=== PATIENT | female | born 1980 | race African-American/Black ===

== ENCOUNTER 2016-12-26 01:29 | Emergency (ER) | payer MEDICARE ==
[~2016-12-26] VITALS: Ht 170.2 cm; Wt 69.0 kg
[2016-12-26] MEDS ORDERED: KETOROLAC 30MG/ML VIAL IV ONE (05:30)
[2016-12-26] MEDS ORDERED: KETOROLAC 30MG/ML VIAL IM ONE (05:30)
[2016-12-26 05:41] VITALS: BP 128/83
== END 2016-12-26 06:17 | disposition left against medical advice (07) ==
LOC: ER 01:29
DX: M25.512 Pain in left shoulder (principal); F17.210 Nicotine dependence, cigarettes, uncomplicated
CPT/HCPCS: 81025; 96372; 99283; J1885

== ENCOUNTER 2019-03-16 14:55 | Emergency (ER) | payer MEDICARE, OTHER ==
[~2019-03-16] VITALS: Ht 170.2 cm; Wt 64.0 kg
[2019-03-16 15:00] VITALS: BP 166/109
== END 2019-03-16 16:28 | disposition left against medical advice (07) ==
LOC: ER 14:55
DX: Z53.21 Procedure and treatment not carried out due to patient leaving prior to being seen by health care provider (principal)

== ENCOUNTER 2021-04-14 10:30 | Emergency (ER) | payer MEDICARE, MEDICAID ==
[~2021-04-14] VITALS: Ht 167.6 cm; Wt 85.0 kg
[~2021-04-14 10:30] MED LIST: BUPR100T13 PO; FLUO20CA39 MT; GABA-290 MT; LAMO200T50 MT; PROT40 MT
[2021-04-14] MEDS ORDERED: MAGNESIUM/ALUMINUM HYDROXIDE/SIMETHICONE 30ML UDC PO STA (12:03)
[2021-04-14] MEDS ORDERED: VISCOUS LIDOCAINE 2% 15 ML UDC PO STA (12:03)
[2021-04-14] MEDS ORDERED: ONDANSETRON 4MG ODT PO STA (12:03)
[2021-04-14 13:05] LABS: CLARITY URINE CLEAR (CLEAR); COLOR URINE YELLOW (YELLOW); KETONES URINE NEGATIVE (NEGATIVE); LEUKOCYTE ESTERASE URINE NEGATIVE (NEGATIVE); NITRITE URINE NEGATIVE (NEGATIVE); OCCULT BLOOD URINE NEGATIVE (NEGATIVE); PROTEIN URINE NEGATIVE (NEGATIVE); SPECIFIC GRAVITY URINE 1.029 (1.005-1.030); UROBILINOGEN URINE 0.2 E.U./dL (0.2-1.0)
[2021-04-14 13:07] LABS: BASOPHILS % 0.9 % (0.0-2.0); EOSINOPHILS % 1.6 % (0.0-5.0); HEMATOCRIT. 35.7 % (36.0-48.0); HEMOGLOBIN. 11.8 g/dL (12.0-16.0); LYMPHOCYTES % 42.5 % (20.0-50.0); MEAN CORPUSCULAR HEMOGLOBIN 23.1 pg (28.0-32.0); MEAN CORPUSCULAR VOLUME 69.9 fL (81.0-99.0); MEAN PLATELET VOLUME 7.2 fl (7.4-10.4); MONOCYTES % 5.4 % (2.0-8.0); NEUTROPHILS % 49.6 % (40.0-76.0); PLATELET 544 x1000/uL (130-400); RED CELL DISTRIBUTION WIDTH 15.8 % (11.6-14.6)
[2021-04-14 13:18] LABS: CHLORIDE 110 mEq/L (98-107)
[2021-04-14 13:22] LABS: ETHANOL BLOOD < 10 mg/dL
[2021-04-14 13:27] LABS: HCG SCREEN NEGATIVE
[2021-04-14] MEDS ORDERED: SUCRALFATE 1 G/10 ML UDC PO ONE (13:30)
[2021-04-14 13:42] LABS: PLATELET ESTIMATE INCREASED
[2021-04-14 13:54] LABS: CANNABINOID URINE SCREEN NEGATIVE (NEGATIVE); PHENCYCLIDINE URINE SCREEN NEGATIVE (NEGATIVE)
[2021-04-14 13:55] LABS: *AMPHETAMINES SCREEN URINE NEGATIVE (NEGATIVE); *BARBITURATES SCREEN URINE NEGATIVE (NEGATIVE)
[2021-04-14 13:56] LABS: METHADONE URINE SCREEN NEGATIVE (NEGATIVE)
[2021-04-14 13:57] LABS: *BENZODIAZEPINES SCREEN URINE NEGATIVE (NEGATIVE); *COCAINE SCREEN URINE NEGATIVE (NEGATIVE)
[2021-04-14 14:13] LABS: OPIATES URINE SCREEN PRESUMTIVE POSITIVE (NEGATIVE)
[2021-04-14] MEDS ORDERED: PROT40 MT (14:17)
[2021-04-14] MEDS ORDERED: ONDA4TAB5 MT (14:17)
[2021-04-14] MEDS ORDERED: SUCR1TAB30 MT (14:17)
[2021-04-14] MEDS ORDERED: MAG355OR21 MT (14:17)
[2021-04-14] MEDS ORDERED: ACET-2708 MT (14:17)
[2021-04-14 14:53] VITALS: BP 126/75
== END 2021-04-14 14:54 | disposition home or self-care (01) ==
LOC: ER 10:30
DX: K29.70 Gastritis, unspecified, without bleeding (principal); I10 Essential (primary) hypertension; Z98.890 Other specified postprocedural states; F17.290 Nicotine dependence, other tobacco product, uncomplicated; Z90.49 Acquired absence of other specified parts of digestive tract; Z79.899 Other long term (current) drug therapy
CPT/HCPCS: 36415; 71045; 80053; 80305; 80320; 81003; 81025; 83690; 84703; 85025; 93005; 99285; Q0162; G0480

== ENCOUNTER 2021-06-22 07:07 | Emergency (ER) | payer MEDICARE, MEDICAID ==
[~2021-06-22] VITALS: Ht 170.2 cm; Wt 84.0 kg
[~2021-06-22 07:07] MED LIST changes: +ACET-2708 MT; +MAG355OR21 MT; +ONDA4TAB5 MT; +SUCR1TAB30 MT
[2021-06-22 07:36] VITALS: BP 135/91
[2021-06-22] MEDS ORDERED: ONDANSETRON HCL 4MG/2ML INJ IV ONE (08:30)
[2021-06-22] MEDS ORDERED: FAMOTIDINE 20MG TABLET PO ONE (08:30)
[2021-06-22] MEDS ORDERED: SODIUM CHLORIDE 0.9% 1,000 ML IV ONE (09:00)
[2021-06-22 09:08] LABS: BASOPHILS % 1.1 % (0.0-2.0); EOSINOPHILS % 0.9 % (0.0-5.0); HEMATOCRIT. 38.1 % (36.0-48.0); HEMOGLOBIN. 12.7 g/dL (12.0-16.0); LYMPHOCYTES % 34.1 % (20.0-50.0); MEAN CORPUSCULAR HEMOGLOBIN 23.9 pg (28.0-32.0); MEAN CORPUSCULAR VOLUME 71.6 fL (81.0-99.0); MONOCYTES % 5.5 % (2.0-8.0); NEUTROPHILS % 58.4 % (40.0-76.0); RED BLOOD CELL COUNT 5.33 mill/uL (4.2-5.4); RED CELL DISTRIBUTION WIDTH 16.6 % (11.6-14.6)
[2021-06-22 09:14] LABS: CHLORIDE 111 mEq/L (98-107)
[2021-06-22 10:01] LABS: MEAN PLATELET VOLUME 7.7 fl (7.4-10.4); PLATELET 463 x1000/uL (130-400)
== END 2021-06-22 10:17 | disposition left against medical advice (07) ==
LOC: ER 08:08
DX: D75.839 Thrombocytosis, unspecified (principal); K29.70 Gastritis, unspecified, without bleeding; I10 Essential (primary) hypertension; Z98.890 Other specified postprocedural states
CPT/HCPCS: 36415; 71045; 76705; 80053; 83880; 84484; 85025; 93005; 99285; J7030

== ENCOUNTER 2021-06-24 12:23 | Emergency (ER) | payer MEDICARE, MEDICAID ==
[~2021-06-24] VITALS: Ht 170.2 cm; Wt 89.0 kg
[2021-06-24] MEDS ORDERED: VISCOUS LIDOCAINE 2% 15 ML UDC PO ONE (13:15)
[2021-06-24] MEDS ORDERED: DICYCLOMINE 10 MG/5 ML ORAL SYR PO ONE (13:15)
[2021-06-24] MEDS ORDERED: MAGNESIUM/ALUMINUM HYDROXIDE/SIMETHICONE 30ML UDC PO ONE (13:15)
[2021-06-24] MEDS ORDERED: ONDANSETRON 4MG ODT PO ONE (13:45)
[2021-06-24 14:13] LABS: BASOPHILS % 0.9 % (0.0-2.0); CHLORIDE 110 mEq/L (98-107); EOSINOPHILS % 1.2 % (0.0-5.0); HEMATOCRIT. 36.4 % (36.0-48.0); HEMOGLOBIN. 11.7 g/dL (12.0-16.0); LYMPHOCYTES % 40.8 % (20.0-50.0); MEAN CORPUSCULAR HEMOGLOBIN 23.1 pg (28.0-32.0); MEAN CORPUSCULAR VOLUME 71.9 fL (81.0-99.0); MEAN PLATELET VOLUME 7.5 fl (7.4-10.4); MONOCYTES % 7.2 % (2.0-8.0); NEUTROPHILS % 49.9 % (40.0-76.0); PLATELET 413 x1000/uL (130-400); RED BLOOD CELL COUNT 5.07 mill/uL (4.2-5.4); RED CELL DISTRIBUTION WIDTH 16.6 % (11.6-14.6)
[2021-06-24] MEDS ORDERED: HYDROCODONE/ACETAMINOPHEN 5/325MG TABLET PO ONE (15:15)
[2021-06-24 17:46] VITALS: BP 127/72
== END 2021-06-24 17:46 | disposition home or self-care (01) ==
LOC: ER 12:23
DX: R07.89 Other chest pain (principal); I10 Essential (primary) hypertension; F17.210 Nicotine dependence, cigarettes, uncomplicated; Z90.49 Acquired absence of other specified parts of digestive tract
CPT/HCPCS: 36415; 71045; 80053; 81025; 83690; 84484; 85025; 93005; 99291; Q0162